=== PATIENT | female | born 1945 | race Caucasian/White ===

== ENCOUNTER 2024-03-30 12:16 | Outpatient (CLI) | payer MEDICARE | END 2024-03-30 12:17 | disposition home or self-care (01) | LOC: CSHMRI 12:16 | PROVIDERS: ATTEND Physician Assistant | DX: I65.23 Occlusion and stenosis of bilateral carotid arteries (principal); M54.2 Cervicalgia; R93.7 Abnormal findings on diagnostic imaging of other parts of musculoskeletal system; M48.52XD Collapsed vertebra, not elsewhere classified, cervical region, subsequent encounter for fracture with routine healing; M47.12 Other spondylosis with myelopathy, cervical region; M48.02 Spinal stenosis, cervical region | CPT/HCPCS: 72141; 93880 ==